=== PATIENT | female | born 1970 | race African-American/Black ===

== ENCOUNTER 2023-11-10 04:10 | Day surgery (SDC) | payer OTHER ==
[2023-11-08 09:55] VITALS: BMI 39.6
[2023-11-10] MEDS ORDERED: LIDOCAINE HCL/PF 2% SDV 5ML VIAL ONE (13:18)
[2023-11-10] MEDS ORDERED: MIDAZOLAM HCL 2 MG/2 ML SINGLE DOSE VIAL ONE (13:18)
[2023-11-10] MEDS ORDERED: PROPOFOL 20 ML ONE (13:18)
[2023-11-10] MEDS: ceFAZolin SODIUM 1 GM VIAL IVPB ONE (13:58)
[2023-11-10] MEDS ORDERED: DEXAMETHASONE SOD PHOSPHATE 4 MG/1 ML VIAL ONE (14:00)
[2023-11-10] MEDS ORDERED: ceFAZolin SODIUM 1 GM VIAL ONE (14:00)
[2023-11-10] MEDS ORDERED: ONDANSETRON 4 MG/2 ML VIAL ONE (14:00)
[2023-11-10] MEDS ORDERED: KETOROLAC TROMETHAMINE 30 MG/1 ML VIAL ONE (14:00)
[2023-11-10] MEDS ORDERED: oxyCODONE HCL 5 MG TABLET PO PRN ×2 (14:08)
[2023-11-10] MEDS ORDERED: PROMETHAZINE HCL 25 MG/1 ML VIAL IVPB PRN (14:08)
[2023-11-10] MEDS ORDERED: ONDANSETRON 4 MG/2 ML VIAL IVPUSH PRN (14:08)
[2023-11-10] MEDS ORDERED: LACTATED RINGERS SOLUTION 1,000 ML IV SCH (14:15)
[2023-11-10] MEDS ORDERED: ROCURONIUM BROMIDE 50 MG/5 ML SYRINGE ONE (14:58)
[2023-11-10] MEDS ORDERED: SUGAMMADEX SODIUM 200 MG/2 ML VIAL ONE (15:29)
[2023-11-10] MEDS ORDERED: ACETAMINOPHEN INJECTION 100 ML ONE (15:54)
[2023-11-10] MEDS: ACETAMINOPHEN 1000 MG/100 ML BAG IVPB ONE (15:58)
[2023-11-10] MEDS ORDERED: ALBUTEROL SO4 0.083% IH SOL 2.5 MG/3 ML VIAL.NEB. NEB ONE (16:13)
[2023-11-10] MEDS: ALBUTEROL SULFATE 0.021% (0.63 MG/3 ML) VIAL.NEB NEB ONE (16:23)
[2023-11-10 17:18] VITALS: RESP 18
[2023-11-10 17:40] VITALS: BP 104/74; PULSE 80; TEMP 97
== END 2023-11-10 18:22 | disposition home or self-care (01) ==
LOC: JASU-SURG 04:10
PROVIDERS: ATTEND Obstetrics & Gynecology
PROC: 0UJD8ZZ Inspection of Uterus and Cervix, Via Natural or Artificial Opening Endoscopic (ICD-10-PCS; principal; 2023-11-10 13:30)
DX: Z53.8 Procedure and treatment not carried out for other reasons (principal); N92.0 Excessive and frequent menstruation with regular cycle; D25.9 Leiomyoma of uterus, unspecified
CPT/HCPCS: 81025; 94640; 94760; J0131